=== PATIENT | male | born 1945 | race Caucasian/White ===

== ENCOUNTER 2025-06-06 22:54 | Inpatient (IN) | payer OTHER, MEDICARE ==
[~2025-06-06] VITALS: Ht 185.4 cm; Wt 88.3 kg
--- NOTE | 2025-06-06 23:12 | ECG ---
[facility], [place] Test Date: 2025-06-06 Test Time: 22:57:58 Pat Name: JACE SHANNON Department: ED Room: 0220 Gender: M Purchasing And Fiscal Clerk: FLORIDALMA : 1945 Requested By: SHELBY CERVANTES Order Number: [id number] Reading MD: Bairon Sanchez Measurements Intervals Robertson Rate: 100 P: 88 UT: 188 QRS: 90 QRSD: 102 T: 88 QT: 332 QTc: 429 Interpretive Statements Sinus tachycardia Atrial premature complexes Consider right atrial enlargement Borderline right axis deviation Nonspecific T abnormalities, lateral leads Electronically Signed On 06-08-2025 17:46:50 PST by Bairon Sanchez Please click the below link to view image of tracing.
--- NOTE | 2025-06-06 23:26 | ED.PDOC ---
History of Present Illness HPI Comments 79-year-old male is brought in by ambulance from private residence for chief complaint of shortness of breath. Significant history for anxiety, bronchiectasis, COPD with PRN home O2, and former tobacco cigarette user. Patient endorses 2-3 day history of progressively worsening symptoms. No relief for improvement without home breathing treatment use. He used 4x rounds of his Albuterol and Atrovent breathing treatments, today, prior to EMS arrival. On scene, patient was found with a SpO2 of 90-91% on his home oxygen at 1 L/min, with lung auscultations showing clear lung sounds, bilaterally. Patient denies any chest pain, cough, congestion, fever, or further symptoms. 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 Family History Family History: Unknown Social History Smoker: Quit Greater Than 1 Year Alcohol: Occasionally Drugs: Denies Drug Use Lives In: Home Constitutional: denies: chills, diaphoresis, fatigue, fever, malaise, sweats, weakness, others EENTM: denies: blurred vision, double vision, ear bleeding, ear discharge, ear drainage, ear pain, ear ringing, eye pain, eye redness, hearing loss, mouth pain, mouth swelling, nasal discharge, nose bleeding, nose congestion, nose pain, photophobia, tearing, throat pain, throat swelling, voice changes, others Respiratory: reports: shortness of breath; denies: cough, hemoptysis, orthopnea, SOB at rest, SOB with excertion, stridor, wheezing, others Cardiovascular: denies: chest pain, dizzy spells, diaphoresis, Dyspnea on exertion, edema, irregular heart beat, left arm pain, lightheadedness, palpitations, PND, syncope, others Gastrointestinal: denies: abdomen distended, abdominal pain, blood streaked bowels, constipated, diarrhea, dysphagia, difficulty swallowing, hematemesis, melena, nausea, poor appetite, poor fluid intake, rectal bleeding, rectal pain, vomiting, others Genitourinary: denies: burning, dysuria, flank pain, frequency, hematuria, incontinence, penile discharge, penile sore, pain, testicle pain, testicle swelling, urgency, others Neurological: denies: dizziness, fainting, headache, left sided numbness, left sided weakness, numbness, paresthesia, pre-existing deficit, right sided numbness, right sided weakness, seizure, speech problems, tingling, tremors, weakness, others Musculoskeletal: denies: back pain, gout, joint pain, joint swelling, muscle pain, muscle stiffness, neck pain, others Integumetry: denies: bruises, change in color, change in hair/nails, dryness, laceration, lesions, lumps, rash, wounds, others Allergic/Immunocompromised: denies: Difficulty Healing, Frequent Infections, Hives, Itching, others Hematologic/Lymphatic: denies: anemia, blood clots, easy bleeding, easy bruising, swollen glands, others Endocrine: denies: excessive hunger, excessive sweating, excessive thirst, excessive urination, flushing, intolerance to cold, intolerance to heat, unex plained weight gain, unexplained weight loss, others Psychiatric: denies: anxiety, bipolar disorder, depression, hopeless, panic disorder, schizophrenia, sleepless, suicidal, others All Other Systems: Reviewed and Negative Physical Exam General Appearance: Moderate Distress HEENT: Normal ENT Inspection, Pharynx Normal, TMs Normal Neck: Full Range of Motion, Non-Tender, Normal, Normal Inspection Respiratory: Accessory Muscle Use, Chest Non-Tender, Decreased Breath Sounds, Respiratory Distress, Wheezing Cardiovascular: No Edema, No JVD, No Murmur, No Gallop, Normal Peripheral Pulses, Regular Rate/Rhythm Breast Exam: Deferred Gastrointestinal: No Organomegaly, Non Tender, No Pulsatile Mass, Normal Bowel Sounds, Soft Genitalia: Deferred Pelvic: Deferred Rectal: Deferred Extremities: No calf tenderness, Normal capillary refill, Normal inspection, Normal range of motion, Non-tender, No pedal edema Musculoskeletal : Apperance: Normal Neurologic: Alert, manager marketing communication II-XII nml as Tested, Motor Weakness, Normal Affect, Normal Mood, No Sensory Deficits Cerebellar Function: Normal Reflexes: Normal Skin: Dry, Normal Color, Warm Lymphatic: No Adenopathy Was a procedure done? Was a procedure done?: No EKG EKG : Pulse Rate (adult): 100 [place]: RAD Cardiac Rhythm: ST Block: None Hypertrophy: CHINTAN ST: Normal Differential Dx Considerations may include: Acute COPD exacerbation, bronchiectasis, anxiety, URI, pneumonia, [place], PE, among others X-Ray, Labs, Meds, VS Vital Signs Date Time Temp Pulse Resp B/P (MAP) Pulse Ox O2 Delivery O2 Flow Rate FiO2 06/06/25 23:26 100 06/06/25 23:01 98.9 111 15 138/77 91 98.9 06/06/25 22:57 100 Lab Test 06/07/25 00:14 06/06/25 23:13 Range/Units Troponin I High Sensitivity Pending 4 </=54 ng/L White Blood Count 27.4 H 4.4-10.8 10^3/uL Red Blood Count 3.51 L 4.5-5.90 10^6/uL Hemoglobin 11.0 L 13.5-17.5 g/dL Hematocrit 35.2 L 41.0-53.0 % Mean Corpuscular Volume 100.6 H 80.0-100.0 fL Mean Corpuscular Hemoglobin 31.4 28.0-32.0 pg Mean Corpuscular Hemoglobin Concent 31.2 L 32.0-36.0 g/dL Red Cell Distribution Width 17.9 H 11.8-14.3 % Platelet Count 405 140-450 10^3/uL Mean Platelet Volume 6.9 6.9-10.8 fL Neutrophils (%) (Auto) 91.9 H 37.0-80.0 % Lymphocytes (%) (Auto) 1.8 L 10.0-50.0 % Monocytes (%) (Auto) 5.7 0.0-12.0 % Eosinophils (%) (Auto) 0.0 0.0-7.0 % Basophils (%) (Auto) 0.6 0.0-2.0 % Neutrophils # (Auto) 25.2 H 1.6-8.6 10 ^3/uL Lymphocytes # (Auto) 0.5 0.4-5.4 10 ^3/uL Monocytes # (Auto) 1.6 H 0-1.3 10 ^3/uL Eosinophils # (Auto) 0 0-0.8 10 ^3/uL Basophils # (Auto) 0.2 0-0.2 10 ^3/uL Nucleated Red Blood Cells 0.0 % Sodium Level 136 136-145 mmol/L Potassium Level 3.8 3.5-5.1 mmol/L Chloride Level 101 98-107 mmol/L Carbon Dioxide Level 23 20-31 mmol/L Anion Gap 12 5-15 Blood Urea Nitrogen 12 9-23 mg/dL Creatinine 0.76 0.700-1.30 mg/dL Glomerular Filtration Rate Calc 92 >90 mL/min BUN/Creatinine Ratio 15.8 10.0-20.0 Serum Glucose 145 H 74-106 mg/dL Calcium Level 8.8 8.7-10.4 mg/dL B-Type Natriuretic Peptide 22.82 0-100 pg/mL Current Medications Medications (Trade) Dose Ordered Sig/Edy Route Start Time Stop Time Status Last Admin Methylprednisolone Sodium Succinate (Solu Medrol) 125 mg ONCE ONCE IV 06/06/25 23:15 06/06/25 23:16 DC 06/07/25 00:20 Was given Solu-Medrol 125 mg IV push The patient's CBC shows an elevated white blood cell count of 27.4 The rest of the CBC is within normal limits The chemistry panel is within normal limits The patient will be admitted at this time The patient's 1st troponin level came back in his negative The patient understands and agrees with the management. The patient is admitted with a diagnosis of COPD exacerbation and acute respiratory failure Images Reviewed?: Images reviewed and evaluated by me Time of 1ST Reevaluation: 23:30 Reevaluation 1ST: Unchanged Patient Education/Counseling: Diagnosis, Treatment, Other (Need for admission) Family Education/Counseling: No Family Present SEPSIS Sepsis Screen Date sepsis recognized/suspect: Jun 06, 2025 Time Sepsis recognized/suspect: 2304 Recent Procedure: No On Antibiotic Therapy: No Respiratory Rate >20: No Heart Rate >90: Yes Temp<36 C (96.8 F) or >38.3 C: No SBP <90 or MAP <65 mmHG: No New Acute Mental Status Change: No Is the patient on CPAP, BIPAP,: No Physician Orders Urinalysis (06/06/25 23:06) Chest Portable (06/06/25 23:06) Heplock Iv (06/06/25 23:06) Pulse Oximetry (06/06/25 23:06) Inclusion Specialist (06/06/25 23:06) Blood Pressure (06/06/25 23:06) Troponin-I Hs (06/07/25 00:06) Troponin-I Hs (06/07/25 02:06) Vital Signs Date Time Temp Pulse Resp B/P (MAP) Pulse Ox O2 Delivery O2 Flow Rate FiO2 06/06/25 23:26 100 06/06/25 23:01 98.9 111 15 138/77 91 98.9 06/06/25 22:57 100 Laboratory Tests Test 06/06/25 23:13 White Blood Count 27.4 10^3/uL (4.4-10.8) H Medications Medications Dose Ordered Sig/Edy Route Start Time Stop Time Status Last Admin Dose Admin Methylprednisolone Sodium Succinate 125 mg ONCE ONCE IV 06/06/25 23:15 06/06/25 23:16 DC 06/07/25 00:20 Departure 1 Departure Time of Disposition: 00:48 Impression: Primary Impression: Acute respiratory failure Qualified Codes: J96.01 - Acute respiratory failure with hypoxia Additional Impression: COPD exacerbation Disposition: ADMITTED INPATIENT Admit to: Tele Condition: Fair Critical Care Note Critical Care Time?: Yes (45 min-critical care time only) Stability Stability form required: Yes Unstable for transfer: ICU, CCU, PCU, EMILIA (Intensive VS monitoring), ED Physician Assesment (Clinical assesment) Heart Score Heart Score: Heart Score Response (Comments) Value History Moderate Suspicious 1 EKG Normal 0 Age >65 2 Risk Factors >3 or Hx ASHD 2 Troponin Normal limit 0 Total 5 I personally scribed for SHELBY CERVANTES MD ([email or web address]) on 06/06/25 at 23:26. Electronically submitted by Fortunato Bethea ([email or web address]). SHELBY CERVANTES MD Jun 06, 2025 23:26
[2025-06-06 23:38] LABS: Hematocrit 35.2 % (41.0-53.0); Hemoglobin 11.0 g/dL (13.5-17.5); Mean Corpuscular Hemoglobin 31.4 pg (28.0-32.0); Mean Corpuscular Volume 100.6 fL (80.0-100.0); Nucleated Red Blood Cells % 0.0 %
[2025-06-06 23:49] LABS: Chloride 101 mmol/L (98-107); Potassium 3.8 mmol/L (3.5-5.1)
[2025-06-06 23:50] LABS: Anion Gap 12 (5-15); Calcium 8.8 mg/dL (8.7-10.4); Carbon Dioxide 23 mmol/L (20-31)
[2025-06-06 23:55] LABS: BUN/Creatinine Ratio 15.8 (10.0-20.0); Blood Urea Nitrogen 12 mg/dL (9-23); Glucose 145 mg/dL (74-106); Sodium 136 mmol/L (136-145)
[2025-06-07] VITALS (8 sets, daily range): BP systolic 113–133; BP diastolic 58–73; PULSE 63–100; RESP 16–23; TEMP 97.2–98.9; O2SAT 92–96
--- NOTE | 2025-06-07 00:03 | DVH ---
CHEST RADIOGRAPH Indication: sob Technique: Single frontal view of the chest was obtained COMPARISON: None FINDINGS: Right-sided Port-A-Cath extends superiorly into the jugular vein. Lungs and pleural spaces are clear. Cardiac silhouette and surinder are within normal limits. Bones and soft tissues demonstrate no significant abnormality. IMPRESSION: Right-sided Port-A-Cath extending superiorly into the jugular vein. No acute intrathoracic abnormality.
[2025-06-07] MEDS: methylPREDNISolone SOD SUCC 125 MG/2 ML VL IV ONE (00:20)
[2025-06-07] MEDS ORDERED: IPRATROPIUM BROM 0.5 MG/2.5ML INH SOL NEB PRN (02:00)
[2025-06-07] MEDS ORDERED: ONDANSETRON HCL 4 MG/2 ML VIAL IV PRN (02:00)
[2025-06-07] MEDS ORDERED: HYDROcodone-ACET 5/325MG TAB PO PRN (02:00)
[2025-06-07] MEDS ORDERED: ACETAMINOPHEN 325 MG TAB PO PRN (02:00)
[2025-06-07] MEDS ORDERED: ALBUTEROL SULF 2.5 MG/0.5ML(0.5%) NEB SOLN NEB PRN (02:00)
--- NOTE | 2025-06-07 04:42 | DVHHP2 ---
History of Present Illness Reason for Visit: Shortness for breath History of Present Illness 79-year-old male presents for evaluation of shortness for breath. The patient reports a history of COPD currently using 3 L of nasal cannula oxygen at home. Reports using inhaler and nebulizer without relief of the symptoms. Denies c ough or fever. No chest pain. Past Medical History COPD Past Surgical History Left great toe partial amputation Family History Noncontributory Smoke: Quit ALCOHOL: occassional Drugs: None Lives: with Family Review of Systems Review of Systems Review of systems are currently negative otherwise addressed in HPI. Allergies: Coded Allergies: Meperidine and Related (Verified Allergy, Unknown, 06/07/25) Medications Current Medications Medications Dose Ordered Sig/Edy Route Start Time Stop Time Status Last Admin Dose Admin Albuterol 2.5 mg Q6HPRN PRN NEB 06/07/25 02:00 Ipratropium [place] 0.5 mg Q6HPRN PRN NEB 06/07/25 02:00 Methylprednisolone Sodium Succinate 40 mg DAILY IV 06/07/25 10:00 Ceftriaxone Sodium 50 ml @ 100 mls/hr DAILY@09 IV 06/07/25 02:00 06/07/25 02:59 100 MLS/HR Acetaminophen/ Hydrocodone Bitart 1 tab Q4HP PRN PO 06/07/25 02:00 Ondansetron HCl 4 mg Q4HP PRN IV 06/07/25 02:00 Enoxaparin Sodium 40 mg DAILY SC 06/07/25 10:00 Acetaminophen 650 mg Q6HP PRN PO 06/07/25 02:00 Exam Vital Signs Vital Signs Date Time Temp Pulse Resp B/P (MAP) Pulse Ox O2 Delivery O2 Flow Rate FiO2 06/07/25 03:30 84 25 132/68 (89) 93 06/07/25 02:15 Nasal Cannula* 2 28 06/07/25 02:15 98.9 98.9 Exam Gen: 79-year-old male in mild distress Skin: Warm, dry, normal color and texture, no rash. HEENT: Normocephalic atraumatic, mucous membranes moist and pink. Neck: Cervical and supraclavicular nodes normal without enlargement, trachea is midline, thyroid gland is normal without masses. Pulmonary: Diminished breath sounds bilaterally Cardiac: Regular rate and rhythm. No murmur Abdomen: Soft, nontender, nondistended, bowel sounds present all 4 quadrants, no guarding, no rigidity, no organomegaly. Extremities: No cyanosis, clubbing, no edema Neuro: Cranial nerves II through XII grossly intact, normal affect and speech, no focal motor deficits. Labs/Xrays ORDERING PHYSICIAN: SHELBY CERVANTES MD PROCEDURE(s): CXRP - CHEST PORTABLE REASON: sob ORDER NUMBER(s): [id number], ACCESSION NUMBER(s): [id number] CHEST RADIOGRAPH Indication: sob Technique: Single frontal view of the chest was obtained COMPARISON: None FINDINGS: Right-sided Port-A-Cath extends superiorly into the jugular vein. Lungs and pleural spaces are clear. Cardiac silhouette and surinder are within normal limits. Bones and soft tissues demonstrate no significant abnormality. IMPRESSION: Right-sided Port-A-Cath extending superiorly into the jugular vein. No acute intrathoracic abnormality. Labs Test 06/07/25 02:15 06/07/25 00:14 06/06/25 23:13 Range/Units Lactic Acid Level 1.5 0.4-2.0 mmol/L Troponin I High Sensitivity 3 L </=54 ng/L White Blood Count 27.4 H 4.4-10.8 10^3/uL Red Blood Count 3.51 L 4.5-5.90 10^6/uL Hemoglobin 11.0 L 13.5-17.5 g/dL Hematocrit 35.2 L 41.0-53.0 % Mean Corpuscular Volume 100.6 H 80.0-100.0 fL Mean Corpuscular Hemoglobin 31.4 28.0-32.0 pg Mean Corpuscular Hemoglobin Concent 31.2 L 32.0-36.0 g/dL Red Cell Distribution Width 17.9 H 11.8-14.3 % Platelet Count 405 140-450 10^3/uL Mean Platelet Volume 6.9 6.9-10.8 fL Neutrophils (%) (Auto) 91.9 H 37.0-80.0 % Lymphocytes (%) (Auto) 1.8 L 10.0-50.0 % Monocytes (%) (Auto) 5.7 0.0-12.0 % Eosinophils (%) (Auto) 0.0 0.0-7.0 % Basophils (%) (Auto) 0.6 0.0-2.0 % Neutrophils # (Auto) 25.2 H 1.6-8.6 10 ^3/uL Lymphocytes # (Auto) 0.5 0.4-5.4 10 ^3/uL Monocytes # (Auto) 1.6 H 0-1.3 10 ^3/uL Eosinophils # (Auto) 0 0-0.8 10 ^3/uL Basophils # (Auto) 0.2 0-0.2 10 ^3/uL Nucleated Red Blood Cells 0.0 % D-Dimer, Quantitative 0.55 H 0.0-0.49 mg/L FEU Sodium Level 136 136-145 mmol/L Potassium Level 3.8 3.5-5.1 mmol/L Chloride Level 101 98-107 mmol/L Carbon Dioxide Level 23 20-31 mmol/L Anion Gap 12 5-15 Blood Urea Nitrogen 12 9-23 mg/dL Creatinine 0.76 0.700-1.30 mg/dL Glomerular Filtration Rate Calc 92 >90 mL/min BUN/Creatinine Ratio 15.8 10.0-20.0 Serum Glucose 145 H 74-106 mg/dL Calcium Level 8.8 8.7-10.4 mg/dL B-Type Natriuretic Peptide 22.82 0-100 pg/mL SEPSIS Sepsis Screen Date sepsis recognized/suspect: Jun 07, 2025 Time Sepsis recognized/suspect: 0109 Recent Procedure: No On Antibiotic Therapy: No Respiratory Rate >20: Yes Heart Rate >90: No Temp<36 C (96.8 F) or >38.3 C: No SBP <90 or MAP <65 mmHG: No New Acute Mental Status Change: No Is the patient on CPAP, BIPAP,: No Physician Orders Urinalysis (06/06/25 23:06) Chest Portable (06/06/25 23:06) Heplock Iv (06/06/25 23:06) Pulse Oximetry (06/06/25 23:06) Mining Captain (06/06/25 23:06) Blood Pressure (06/06/25 23:06) Albuterol Medneb (Ventolin Medneb) (06/07/25 02:00) Ipratropium Medneb (Atrovent Medneb) (06/07/25 02:00) Methylprednisolone Sod Succ (Solu Medrol (06/07/25 10:00) Blood Culture (06/07/25 01:58) Ceftriaxone 1gm/50ml (Rocephin) (06/07/25 02:00) Basic Metabolic Panel (06/08/25 04:00) Admit (06/07/25 01:58) Hydrocodone-Acet 5/325mg Tab ([place] 5/32 (06/07/25 02:00) Ondansetron Hcl (Zofran) (06/07/25 02:00) Enoxaparin Sodium (Lovenox) (06/07/25 10:00) Complete Blood Count (06/08/25 04:00) Cardiac Diet-2gna,Lofat,Lochol (06/07/25 Breakfast) Condition: Stable (06/07/25 01:58) Acetaminophen Tablet (Tylenol Tablet) (06/07/25 02:00) Bedrest With Bathroom Privileg (06/07/25 01:58) Vital Signs Date Time Temp Pulse Resp B/P (MAP) Pulse Ox O2 Delivery O2 Flow Rate FiO2 06/07/25 03:30 84 25 132/68 (89) 93 06/07/25 02:15 92 Nasal Cannula* 2 28 06/07/25 02:15 92 Nasal Cannula 2.0 06/07/25 02:15 98.9 100 23 113/62 92 2.0 28 98.9 06/07/25 01:30 94 28 131/68 (89) 90 06/07/25 01:07 Nasal Cannula* 2 28 06/07/25 00:00 93 06/06/25 23:26 100 06/06/25 23:21 95 23 113/62 (79) 90 06/06/25 23:01 98.9 111 15 138/77 91 98.9 06/06/25 22:57 100 Laboratory Tests Test 06/06/25 23:13 06/07/25 02:15 White Blood Count 27.4 10^3/uL (4.4-10.8) H Lactic Acid Level 1.5 mmol/L (0.4-2.0) Medications Medications Dose Ordered Sig/Edy Route Start Time Stop Time Status Last Admin Dose Admin Ceftriaxone Sodium 50 ml @ 100 mls/hr DAILY@09 IV 06/07/25 02:00 06/07/25 02:59 100 MLS/HR Methylprednisolone Sodium Succinate 125 mg ONCE ONCE IV 06/06/25 23:15 06/06/25 23:16 DC 06/07/25 00:20 125 MG Assessment/Plan Assessment/Plan Assessment Acute on chronic respiratory failure COPD exacerbation Leukocytosis Plan Admit the patient to Med surge to the hospitalist Med nebs Resume home medications Continue treatment per orders. Plan discussed with: Patient My Orders Orders - SATISH FAM Procedure Category Date Status Time Albuterol Medneb PHA 06/07/25 In Process (Ventolin Medneb) 02:00 Ipratropium Medneb PHA 06/07/25 In Process (Atrovent Medneb) 02:00 Methylprednisolone PHA 06/07/25 In Process Sod Succ (Solu Medrol 10:00 Blood Culture SANAM 06/07/25 In Process 01:58 Ceftriaxone 1gm/50ml PHA 06/07/25 In Process (Rocephin) 02:00 Basic Metabolic Panel LAB 06/08/25 Verified 04:00 Admit ADMIT 06/07/25 Transmitted 01:58 Hydrocodone-Acet PHA 06/07/25 In Process 5/325mg Tab ([place] 02:00 Ondansetron Hcl PHA 06/07/25 In Process (Zofran) 02:00 Enoxaparin Sodium PHA 06/07/25 In Process (Lovenox) 10:00 Complete Blood Count LAB 06/08/25 Verified 04:00 Cardiac DIET 06/07/25 Transmitted Diet-2gna,Lofat,Lochol Breakfast Condition: Stable REILLY 06/07/25 In Process 01:58 Acetaminophen Tablet PHA 06/07/25 In Process (Tylenol Tablet) 02:00 Bedrest With Bathroom REILLY 06/07/25 In Process Privileg 01:58 Date of Service: Jun 07, 2025 Billing Provider: SATISH FAM Common Visit Codes: [id number] INP/OBS CARE (HIGH) SATISH FAM Jun 07, 2025 04:42
[2025-06-07 07:55] LABS: COVID19 ANTIGEN SOFIA FIA NEGATIVE (NEGATIVE)
[2025-06-07] MEDS: methylPREDNISolone SOD SUCC 40 MG/ML VL IV SCH (10:02)
[2025-06-07] MEDS: ENOXAPARIN SOD 40 MG/0.4 ML SYRINGE SC SCH (10:03)
[2025-06-07] MEDS ORDERED: VANCOMYCIN PER PHARMACY 0 MG IV SCH (14:00)
--- NOTE | 2025-06-07 14:09 | DVHPN2 ---
Subjective Patient continues to report having shortness of breath, but reports it has improved since yesterday. Reviewed: Care Plan, H&P, Labs, Medications, Previous Orders Changes from previous H/P or p: No Changes Objective Vitals Vital Signs Date Time Temp Pulse Resp B/P (MAP) Pulse Ox O2 Delivery O2 Flow Rate FiO2 06/07/25 12:07 97.7 79 18 129/58 (81) 93 97.7 06/07/25 07:51 Nasal Cannula* 2 28 Intake/Output Intake and Output 06/07/25 07:00 Intake Total 50 ml Balance 50 ml Intake IV Total 50 ml General Appearance: Alert, Oriented X3, Cooperative, mild distress HEENT: Atraumatic, PERRLA Lungs: Other (Decreased breath sounds bilaterally. Nasal cannula at 3 L/min) Cardiovascular: Normal S1, Normal S2 Abdomen: Normal bowel sounds, Soft, No tenderness, No hepatospenomegaly Genitourinary: No Apparent Abnormalities Musculoskeletal: Normal sensory function, Normal motor function Neuro: Normal speech Skin: Dry, Intact Psych/Mental Status: Mental status NL, Mood NL Medications Current Medications Medications Dose Ordered Sig/Edy Route Start Time Stop Time Status Last Admin Dose Admin Albuterol 2.5 mg Q6HPRN PRN NEB 06/07/25 02:00 Ipratropium [place] 0.5 mg Q6HPRN PRN NEB 06/07/25 02:00 Methylprednisolone Sodium Succinate 40 mg DAILY IV 06/07/25 10:00 06/07/25 10:02 40 MG Ceftriaxone Sodium 50 ml @ 100 mls/hr DAILY@09 IV 06/07/25 02:00 06/07/25 09:54 100 MLS/HR Acetaminophen/ Hydrocodone Bitart 1 tab Q4HP PRN PO 06/07/25 02:00 Ondansetron HCl 4 mg Q4HP PRN IV 06/07/25 02:00 Enoxaparin Sodium 40 mg DAILY SC 06/07/25 10:00 06/07/25 10:03 40 MG Acetaminophen 650 mg Q6HP PRN PO 06/07/25 02:00 Laboratory Results Laboratory Tests 06/06/25 23:13 Chemistry Test 06/06/25 23:13 Calcium Level 8.8 mg/dL (8.7-10.4) Coagulation Test 06/06/25 23:13 D-Dimer, Quantitative 0.55 mg/L FEU (0.0-0.49) H Cardiac Markers Test 06/06/25 23:13 B-Type Natriuretic Peptide 22.82 pg/mL (0-100) Labs and/or images reviewed: Labs reviewed by me, Image(s) reviewed by me Assessment/Plan Assessment/Plan Impression: -acute hypoxic respiratory failure -sepsis -probable community-acquired pneumonia, Gram-positive/Gram-negative etiology -COPD with exacerbation -myelodysplastic syndrome -peripheral arterial disease Plan: -start bronchodilators q.6 hours while awake -continue Solu-Medrol -add Pulmicort 0.5 mg b.i.d. -continue Rocephin, add vancomycin -blood and sputum culture -CT scan of the chest -check ESR, CRP -restart clopidogrel -PPI -repeat labs in a.m. Total time spent with patient discussing and formulating plan of care: 35 minutes. This medical document was created using an electronic medical record system with [employer] dictation system. Although this document has been carefully reviewed, there may still be some phonetic and typographical errors. These areas are purely typographical due to imperfections of the software programs, and do not reflect any compromise in the patient's medical care. Plan discussed with: Patient, Other (RN) My Orders Orders - EMILI PARSONS NP Procedure Category Date Status Time Albuterol Medneb PHA 06/07/25 Transmitted (Ventolin Medneb) 18:00 Ipratropium Medneb PHA 06/07/25 Transmitted (Atrovent Medneb) 18:00 Budesonide PHA 06/07/25 Transmitted (Inhalation) 22:00 Vancomycin PHA 06/07/25 Transmitted 14:00 Respiratory Culture SANAM 06/07/25 Transmitted W/ Gs 14:00 Pantoprazole Tablet PHA 06/08/25 Transmitted (Protonix Tablet) 06:00 Clopidogrel Bisulfate PHA 06/08/25 Transmitted (Plavix) 10:00 Erythrocyte LAB 06/08/25 Verified Sedimentation Rate 04:00 C-Reactive Protein LAB 06/08/25 Verified 04:[address] 06/07/25 Transmitted 14:00 Date of Service: Jun 07, 2025 Billing Provider: EMILI PARSONS NP Common Visit Codes: [id number] INP/OBS CARE(HIGH) EMILI PARSONS NP Jun 07, 2025 14:09
[2025-06-07] MEDS ORDERED: CLOP75TA70 PO (15:20)
[2025-06-07] MEDS ORDERED: FLUO5CRE EX (15:23)
[2025-06-07] MEDS ORDERED: ZOFR4T PO (15:23)
[2025-06-07] MEDS ORDERED: FLUO-126 PO (15:23)
[2025-06-07] MEDS ORDERED: OMEP-434 PO (15:23)
--- NOTE | 2025-06-07 16:01 | MEDREC ---
[facility] Intervention Section I [facility] Intervention: Review courses of therapy (Suggest addition of azithromycin for COPD exacerbation) ETHAN VILLAFANA PHARMACIST Jun 07, 2025 16:01
[2025-06-07] MEDS: VANCOMYCIN 1.25GM/250ML 250 ML IV SCH (18:37)
[2025-06-07] MEDS: ALBUTEROL SULF 2.5 MG/0.5ML(0.5%) NEB SOLN NEB SCH (18:53)
[2025-06-07] MEDS: BUDESONIDE (INHALATION) 0.5 MG/2 ML NEB NEB SCH (18:53)
[2025-06-07] MEDS: IPRATROPIUM BROM 0.5 MG/2.5ML INH SOL NEB SCH (18:53)
[2025-06-08] VITALS (9 sets, daily range): BP systolic 107–126; BP diastolic 58–78; PULSE 57–72; RESP 16–19; TEMP 97.5–97.8; O2SAT 93–100
[2025-06-08] MEDS: PANTOPRAZOLE 40 MG TAB PO SCH (05:22)
[2025-06-08 06:01] LABS: Hemoglobin 10.4 g/dL (13.5-17.5)
[2025-06-08 06:03] LABS: Hematocrit 32.7 % (41.0-53.0); Mean Corpuscular Hemoglobin 32.3 pg (28.0-32.0); Mean Corpuscular Volume 101.2 fL (80.0-100.0); Nucleated Red Blood Cells % 0.1 %
[2025-06-08 06:17] LABS: Chloride 101 mmol/L (98-107); Potassium 4.7 mmol/L (3.5-5.1); Sodium 137 mmol/L (136-145)
[2025-06-08 06:18] LABS: Anion Gap 7 (5-15); Carbon Dioxide 29 mmol/L (20-31)
[2025-06-08 06:19] LABS: Calcium 9.0 mg/dL (8.7-10.4)
[2025-06-08 06:23] LABS: BUN/Creatinine Ratio 23.4 (10.0-20.0); Blood Urea Nitrogen 15 mg/dL (9-23)
[2025-06-08 06:24] LABS: Glucose 125 mg/dL (74-106)
[2025-06-08] MEDS: CLOPIDOGREL BISULFATE 75 MG TAB PO SCH (08:21)
--- NOTE | 2025-06-08 09:00 | DVH ---
Procedure: CT CHEST WITHOUT CONTRAST Reason for study/Clinical History: pna, copd Comparison Study: XY CHEST PORTABLE on DOS: 06/06/25 Exam Date: 06/08/2025 07:55 AM TECHNIQUE: Multidetector CT of the chest was performed from the lung apices to the upper abdomen without the use of intravenous contract. Coronal and sagittal multiplanar reformats were performed. Radiation Dose Information: CT Dose: CTDI volume is 17.4 mGy. Dose-length product is 725.5 mGy*cm The dose indicators for CT are the volume Computed Tomography (CT) Dose Index (CTDIvol) and the Dose Length Product (DLP), and are measured in units of mGy and mGy-cm, respectively. These indicators are not patient dose, but values generated from the CT scanner acquisition factors. The report includes radiation exposure data for exposures received during this examination. FINDINGS: Support lines and tubes: There is a right infusion catheter which is looped in the right internal jugular vein and the tip terminates in the right internal jugular/brachiocephalic junction. Lower neck: Normal thyroid. Lungs: There is severe centrilobular emphysema. There is a noncalcified spiculated nodule in the right upper lobe measuring 1.1 x 0.9 cm. There are opacities in the right lower lobe. Central airways: Patent. Heart/Vascular Structures: Normal heart size. No pericardial effusion. Normal caliber thoracic aorta. Normal caliber main pulmonary artery. Lymph Nodes: There are subcentimeter mediastinal lymph nodes. Pleura: No pleural effusion or significant pneumothorax. Musculoskeletal: No acute osseous abnormality. Degenerative changes. Soft tissues: Normal. Upper abdomen: Limited portions of the upper abdomen are unremarkable. IMPRESSION: 1. Right lower lobe pneumonia. 2. Severe centrilobular emphysema. 3. Noncalcified spiculated nodule in the right upper lobe measuring 1.1 x 0.9 cm. A PET/CT or tissue sampling is recommended for further evaluation. 4. Right infusion catheter is looped in the right internal jugular vein and the tip terminates in the right internal jugular/brachiocephalic junction. Repositioning is suggested. Radiation optimization: All CT scans at this facility use at least one of these dose optimization techniques: automated exposure control mA and/or kV adjustment per patient size (includes targeted exams where dose is matched to clinical indication) or iterative reconstruction.
[2025-06-08] MEDS ORDERED: BUDE1AER4 IN (15:11)
[2025-06-08] MEDS ORDERED: BACDST PO (15:11)
--- NOTE | 2025-06-08 15:15 | DVHDS2 ---
Discharge Summary Date of Admission Jun 07, 2025 at 01:58 Date of Discharge: Jun 08, 2025 Admitting Diagnosis Acute on chronic respiratory failure Labs/Diagnostic Data: Laboratory Results Test 06/08/25 05:16 06/07/25 06:43 06/07/25 02:15 06/07/25 00:14 White Blood Count 15.2 10^3/uL (4.4-10.8) Red Blood Count 3.23 10^6/uL (4.5-5.90) Hemoglobin 10.4 g/dL (13.5-17.5) Hematocrit 32.7 % (41.0-53.0) Mean Corpuscular Volume 101.2 fL (80.0-100.0) Mean Corpuscular Hemoglobin 32.3 pg (28.0-32.0) Mean Corpuscular Hemoglobin Concent 31.9 g/dL (32.0-36.0) Red Cell Distribution Width 17.4 % (11.8-14.3) Platelet Count 386 10^3/uL (140-450) Mean Platelet Volume 6.8 fL (6.9-10.8) Neutrophils (%) (Auto) 87.7 % (37.0-80.0) Lymphocytes (%) (Auto) 5.8 % (10.0-50.0) Monocytes (%) (Auto) 6.4 % (0.0-12.0) Eosinophils (%) (Auto) 0.0 % (0.0-7.0) Basophils (%) (Auto) 0.1 % (0.0-2.0) Neutrophils # (Auto) 13.3 10 ^3/uL (1.6-8.6) Lymphocytes # (Auto) 0.9 10 ^3/uL (0.4-5.4) Monocytes # (Auto) 1.0 10 ^3/uL (0-1.3) Eosinophils # (Auto) 0 10 ^3/uL (0-0.8) Basophils # (Auto) 0 10 ^3/uL (0-0.2) Nucleated Red Blood Cells 0.1 % Erythrocyte Sedimentation Rate 41 mm/hr (0-20) Sodium Level 137 mmol/L (136-145) Potassium Level 4.7 mmol/L (3.5-5.1) Chloride Level 101 mmol/L (98-107) Carbon Dioxide Level 29 mmol/L (20-31) Anion Gap 7 (5-15) Blood Urea Nitrogen 15 mg/dL (9-23) Creatinine 0.64 mg/dL (0.700-1.30) Glomerular Filtration Rate Calc 97 mL/min (>90) BUN/Creatinine Ratio 23.4 (10.0-20.0) Serum Glucose 125 mg/dL (74-106) Calcium Level 9.0 mg/dL (8.7-10.4) Magnesium Level 1.9 mg/dL (1.6-2.6) C-Reactive Protein High Sensitivity 5.60 mg/dL (<1.0) Influenza Type A Antigen Negative (Negative) Influenza Type B Antigen Negative (Negative) SARS-CoV-2 Antigen (Rapid) Negative (NEGATIVE) Lactic Acid Level 1.5 mmol/L (0.4-2.0) Troponin I High Sensitivity 3 ng/L (</=54) Test 06/06/25 23:13 D-Dimer, Quantitative 0.55 mg/L FEU (0.0-0.49) B-Type Natriuretic Peptide 22.82 pg/mL (0-100) Other Laboratory Tests 06/08/25 05:16 Brief Hx & Hospital Course: History of Present Illness 79-year-old male presents for evaluation of shortness for breath. The patient reports a history of COPD currently using 3 L of nasal cannula oxygen at home. Reports using inhaler and nebulizer without relief of the symptoms. Denies cough or fever. No chest pain. Course of hospitalization: Patient was found to have severe leukocytosis. Patient was started on empiric antibiotic therapy with Rocephin and vancomycin. Patient's white blood cell count improved. Patient also states he has been able to ambulate without oxygen in his requesting to be discharged home. Patient did have CT scan of chest which revealed right lower lobe pneumonia as well as right upper lobe pulmonary nodule. Patient will be discharged home with a prescription of Bactrim DS one tablet b.i.d. for one week. Patient will also be prescribed Symbicort two puffs b.i.d., given that patient was prescribed albuterol nebulizer treatments, but no ICS for his diagnosis of COPD. He is instructed to follow up with his oncologist when he arrives back in [place] next week, to follow up with the pulmonary nodule. Patient was agreeable with discharge plan. All questions answered. Physical examination General: Alert and Oriented x3. No acute distress. Well-nourished. Eyes: EOMI. Anicteric. HENT: Moist mucous membranes. Lungs: Clear to auscultation bilaterally. No accessory muscle use. Cardiovascular: Regular rate and rhythm. No murmur. No JVD. Abdomen: Soft, non-tender and non-distended. No palpable masses. Extremities: No edema. Non-tender. Skin: No rashes or lesions. Warm. Neurologic: No focal neurological deficits. CN II-XII grossly intact, but not individually tested. Psychiatric: Cooperative. Appropriate mood and affect. Total time spent with patient discussing and formulating plan of care: 35 minutes. This medical document was created using an electronic medical record system with [employer] dictation system. Although this document has been carefully reviewed, there may still be some phonetic and typographical errors. These areas are purely typographical due to imperfections of the software programs, and do not reflect any compromise in the patient's medical care. Condition at Discharge: Guarded Final Diagnosis/Problems List -acute hypoxic respiratory failure -sepsis -community-acquired pneumonia, Gram-positive/Gram-negative etiology -COPD with exacerbation -myelodysplastic syndrome -peripheral arterial disease Discharge Disposition: Home Discharge Instruct/Medications Diet: Regular Medications: Bactrim DS one tablet p.o. b.i.d. for seven days Symbicort two puffs b.i.d. Continue all home medications Scheduled Budesonide-Formoterol Fumarate (Budesonide/Formoterol Fum 160-4.5 Mcg/Act), 1 AER IN BID Clopidogrel Bisulfate (Clopidogrel), 75 MG PO DAILY, (Reported) Fluoxetine Hcl (Fluoxetine Hcl), 0 PO DAILY, (Reported) Sulfamethoxazole W/Trimethopri (Bactrim Ds Tablet), 1 TAB PO BID Miscellaneous Medications Fluorouracil (Efudex), 5 % EX, (Reported) Omeprazole Magnesium (Omeprazole), 20 MG PO, (Reported) Ondansetron Odt 4MG Tab (Zofran Po), 4 MG PO, (Reported) 36 Discharge Statement: "Patient was advised to return to the ER or call 911 if any headaches, dizziness, shortness of breath, chest pain, abdominal pain, bleeding, fevers, or worsening of medical condition. Patient was counseled about treatment plan, medications, possible side effects, patientverbalized understanding. All questions were answered to the best of my ability. This discharge took greater then 30 minutes in planning, reviewing documentation, counseling the patient, and discussing with other team members." ASSESSMENT ASSESSMENT Assessment Date of Service: Jun 08, 2025 Billing Provider: EMILI PARSONS NP Common Visit Codes: 91372-NFO/OBS DISCH DAY >30min EMILI PARSONS NP Jun 08, 2025 15:15
== END 2025-06-08 19:15 | disposition home or self-care (01) | DRG 871 ==
LOC: EDBD 22:54 → ER 22:54 → OVERFLOW 06-07 01:58 → CENTRAL 06-07 12:16
PROVIDERS: ADMIT Nurse Practitioner Acute Care; ATTEND Nurse Practitioner Acute Care
DX: A41.9 Sepsis, unspecified organism (principal); J15.69 Pneumonia due to other Gram-negative bacteria; J15.9 Unspecified bacterial pneumonia; J96.21 Acute and chronic respiratory failure with hypoxia; D46.9 Myelodysplastic syndrome, unspecified; J44.0 Chronic obstructive pulmonary disease with (acute) lower respiratory infection; I73.9 Peripheral vascular disease, unspecified; J44.1 Chronic obstructive pulmonary disease with (acute) exacerbation; F41.9 Anxiety disorder, unspecified; Z87.891 Personal history of nicotine dependence; Z79.899 Other long term (current) drug therapy
CPT/HCPCS: 36415; 71045; 71250; 80048; 83605; 83735; 83880; 84484; 85025; 85379; 85652; 86141; 87040; 87426; 87804; 93005; 94640; 96374; 99291; G0378